=== PATIENT | male | born 1980 | race Caucasian/White ===

== ENCOUNTER 2017-07-25 14:12 | Emergency (ER) | payer OTHER ==
[~2017-07-25] VITALS: Ht 177.8 cm; Wt 79.4 kg
[~2017-07-25 14:12] MED LIST: ACET-1175 PO; ESCI1TAB9 PO; LEVO500T19 PO
[2017-07-25 14:16] VITALS: TEMP 36.5; Ht 177.8 cm; Wt 79.4 kg
[2017-07-25 14:17] VITALS: O2SAT 97
--- NOTE | 2017-07-25 14:26 | EMERGENCY ROOM VISIT NOTE ---
History Report prepared by Ran: Keyur Vega Under the Supervision of: Dr. Sammy Saenz M.D. First contact with patient: 14:18 Chief Complaint: SYNCOPE (NEAR SYNCOPE) Nursing Triage Summary: Patient in room C4 with who is a patient. Call riley answered patient sitting in chair extermely diaphoretic and white stating "I am going to pass out". BP at that time was 80/42 with pulse of 43. Patient stated he hadn't eaten anything today. Patient amenable to being seen in the ED at this time. Patient transported to room C2 at this time. History of Present Illness The patient is a 37 year old male who presents to the Emergency Room with complaints of 1 syncopal episode that began prior to arrival with pain rated as 0/10. He states that he did not eat all day and that while he was taking his to ultrasound in the ED (C4), he passed out. He states he is lightheaded but it has improved and is currently drinking mikki marily and eating. Per nursing staff, his blood sugars were at 109 and he was bradycardiac, hypotensive , and diaphoretic. He takes protein supplements but denies taking any regular medications, or steroids. He states that he had a syncopal episode years ago. He denies head strike, calf pain, swelling, abdominal pain, chest pain, or black and bloody stools. He denies recent travel, a history of heart heart attacks, and blood clots. Source of History: patient, nursing staff Onset: [employer] Position: head Quality: other (lightheadedness) Timing: other (improving) Modifying Factors (Relieving): eating, drinking Associated Symptoms: + diaphoresis, No chest pain, No abdominal pain Note: The patient was bradycardiac and hypotensive. Patient denies head strike, calf pain, leg swelling, and black and bloody stools. Review of Systems See HPI for pertinent positives & negatives. A total of 10 systems reviewed and were otherwise negative. Family History Seizures Social History Smoking Status: Never Smoker Alcohol Use: none Marital Status: Housing Status: lives with family Occupation Status: employed Current/Historical Medications Scheduled PRN Acetaminophen (Tylenol), 650 MG PO Q4 PRN for Pain or Fever Allergies Coded Allergies: No Known Allergies (Unverified , 07/25/17) Physical Exam Vital Signs Date Time Temp Pulse Resp B/P (MAP) Pulse Ox O2 Delivery O2 Flow Rate FiO2 07/25/17 15:17 68 16 118/72 98 Room Air 07/25/17 14:23 65 07/25/17 14:17 97 Room Air 07/25/17 14:16 36.5 66 18 106/65 97 Room Air Physical Exam GENERAL: Patient is well appearing and in no acute distress. He is drinking some mikki marily. EYES: No scleral icterus, unremarkable pupils. ENT: Mucous membranes moist, no nasal congestion. NECK: No masses appreciated, no meningismus, trachea is midline. RESPIRATORY: No dyspnea. Clear to auscultation and equal bilaterally. No wheeze , no rhonchi. CARDIOVASCULAR: Regular rate and rhythm. No murmurs, rubs, gallops appreciated. GASTROINTESTINAL: Abdomen soft, nontender, no peritonitis. Bowel sounds positive. No masses appreciated. BACK: No midline tenderness, no CVA tenderness EXTREMITIES: Normal motion all extremities, no cyanosis, no edema. NEUROLOGIC: Alert and oriented, no acute motor or sensory deficits, no focal weakness, cranial nerves grossly intact. SKIN: No rash, no jaundice, no diaphoresis. Medical Decision & Procedures Laboratory Results Test 07/25/17 14:31 Bedside Hemoglobin 14.6 g/dl (14.0-18.0) Bedside Hematocrit 43 % (42-52) Bedside Sodium 138 mEq/L (135-144) Bedside Potassium 4.1 mEq/L (3.3-5.0) Bedside Chloride 99 mEq/L (101-112) Bedside Total CO2 28 mEq/l (24-31) Anion Gap 17.0 mmol/L (16-25) Bedside Blood Urea Nitrogen 27 mg/dl (7-18) Bedside Creatinine 1.2 mg/dl (0.6-1.3) Bedside Glucose (other) 145 mg/dl (70-99) Bedside Ionized Calcium (Jamar) 1.09 mmol/l (1.12-1.32) Laboratory results as reviewed by me. ECG Per My Interpretation Indication: syncope Rate (beats per minute): 63 Rhythm: normal sinus Findings: no acute ischemic change, no ectopy, other (QTc of 444) ED Course 1419: The patient was evaluated in room C2. A complete history and physical exam was performed. 1500: I checked on the patient and he is resting comfortably. He has no further symptoms and states he feels fine. 1515: Reevaluated the patient. Discussed results and discharge instructions: He verbalized understanding and agreement. The patient is ready for discharge. Medical Decision Differential: Vaso-vagal, Intracerebral Event, Neurologic, Infectious, Volume Deficiency, Hypoglycemia, Electrolyte Abnormality, Cardiac Source, Toxicologic, amongst other pathologies entertained. 37 yr old male arrives for evaluation of near/syncope while being here with his who is patient in ED. BSG OK, EKG normal, HgB and Electrolytes OK. Mild renal insufficiency which I noted may be follow up with PCP and may be a bit to do with dehydration, supplement usage and working out. He is stable, looks well after eating/drinking and in no distress. Given symptoms and findings this is very much a vasovagal syncope post not eating all day and coming to ED with . Feel that neuro imaging not indated nor admission. No SOB, recent travel, leg swelling, calf pain, and no history of PE/DVT thus I do not feel that CT indicated. Reviewed symptoms requiring RTED. Head Trauma GCS Score: 15 Medication Reconcilliation Current Medication List: was personally reviewed by me Blood Pressure Screening Patient's blood pressure: Normal blood pressure Blood pressure disposition: Did not require urgent referral Impression Primary Impression: Syncope Scribe Attestation The scribe's documentation has been prepared under my direction and personally reviewed by me in its entirety. I confirm that the note above accurately reflects all work, treatment, procedures, and medical decision making performed by me. Departure Information Dispostion Home / Self-Care Referrals No Doctor, Assigned (PCP) Patient Instructions ED Near Syncope Vasovagal, My [facility]
[2017-07-25 14:42] LABS: ISTAT CREATININE 1.2 mg/dl (0.6-1.3); ISTAT IONIZED CALCIUM 1.09 mmol/l (1.12-1.32); ISTAT POTASSIUM 4.1 mEq/L (3.3-5.0)
[2017-07-25 15:17] VITALS: BP 118/72; PULSE 68; O2SAT 98
== END 2017-07-25 15:23 | disposition home or self-care (01) ==
LOC: C.EDC 14:13
DX: R55 Syncope and collapse (principal)